=== PATIENT | female | born 1940 | race Caucasian/White ===

== ENCOUNTER 2016-07-25 12:46 | Day surgery (SDC) | payer MEDICARE, BC ==
[2016-07-25 13:49] VITALS: BP 133/69; PULSE 60; RESP 16; TEMP 98; O2SAT 94
--- NOTE | 2016-07-25 16:15 | RADRPT ---
EXAM DATE/TIME: 07/25/2016 13:31 [place] COMPARISON: No previous studies available for comparison. [facility]. INDICATIONS : Left parotid mass. MEDICAL HISTORY : Carcinoma, breast. Hypertension. Radiation. Diabetic. SURGICAL HISTORY : Appendectomy. Cholecystectomy. Pacemaker. Left knee replacement. Tonsillectomy. ENCOUNTER: Initial ACUITY: 3 weeks PAIN SCORE: 10/10 LOCATION: Left neck ORGAN: Left parotid gland SPECIMENS: Four core specimen(s) submitted for pathologic evaluation. DEVICE: 20 gauge Tem[place] needle Post procedure scanning reveals no hematoma or other complication. The possibility does exist that the tissue obtained will be non-diagnostic. If the sample is non-mago gnostic a repeat biopsy or surgical biopsy may need to be performed. TECHNIQUE: 1. Ultrasound guidance for needle biopsy. 2. Needle biopsy. The risks, benefits, and alternatives to ultrasound guided needle biopsy were explained to the patien t in detail including the risk of bleeding and infection. Written and verbal informed consent was ob tained. With the patient on the ultrasound table, images were obtained. There is a hypoechoic lobulated daniel d appearing mass within the superficial aspect of the left parotid gland. It measures approximately 2 .7 x 1.8 x 1.9 cm and contains multiple internal echogenic foci. Overlying skin was prepped and drape d in the usual sterile fashion and Lidocaine was utilized as a local anesthetic. A needle was advanced into the left parotid gland mass and for 20 gauge core samples were obtained. The patient tolerated the procedure well and left the ultrasound suite in stable condition. The patie nt reported no pain or other concern at the end of the procedure. CONCLUSION: Uncomplicated ultrasound guided needle biopsy of the left parotid gland mass. Jalil Dick MD on July 25, 2016 at 16:12 Board Certified Radiologist. This report was verified electronically.
[2016-07-25] MEDS ORDERED: SODIUM BICARBONATE 8.4% INJ 50 ML ONE (16:40)
[2016-07-25] MEDS ORDERED: LIDOCAINE HCL 1% PF 30 ML VIAL ONE (16:40)
== END 2016-07-25 15:25 | disposition home or self-care (01) ==
LOC: HRAD 12:46 → HRIP 12:47 → EDSTATUS 13:30 → HRAD 15:25
PROVIDERS: ATTEND Specialist
DX: D11.0 Benign neoplasm of parotid gland (principal); E11.9 Type 2 diabetes mellitus without complications; I10 Essential (primary) hypertension; Z85.3 Personal history of malignant neoplasm of breast; Z95.0 Presence of cardiac pacemaker
CPT/HCPCS: 42400; 76942; 88305; 88313; 88341; 88342